=== PATIENT | male | born 2000 | race Caucasian/White ===

== ENCOUNTER 2021-09-14 23:24 | Emergency (ER) | payer OTHER ==
[~2021-09-14] VITALS: Ht 165.1 cm; Wt 54.5 kg
[2021-09-14 23:26] VITALS: TEMP 97
[2021-09-15 01:10] VITALS: BP 113/72; PULSE 73
== END 2021-09-15 01:10 | disposition home or self-care (01) ==
LOC: COL.ER 23:24
DX: M54.50 Low back pain, unspecified (principal); Z28.310 Unvaccinated for COVID-19; V49.40XA Driver injured in collision with unspecified motor vehicles in traffic accident, initial encounter; Y92.410 Unspecified street and highway as the place of occurrence of the external cause
CPT/HCPCS: J1885; Q9967